=== PATIENT | male | born 1935 | race Caucasian/White ===

== ENCOUNTER → 2017-01-18 | Outpatient (REF) ==
[~2017-01-18] MED LIST: ASPIRIN 81M81 MG/TA2 PO; CELEXA10 MG PO; CENTRUM SILVER1 TAB PO; CIPRO 500MG TA500 MG PO; CLARITIN 1010 MG/TAB PO; COLACE 100100 MG/CAP PO; CORDARONE200 MG/TAB PO; COUMADIN 6MG6 MG/TAB PO; COUMADIN4 MG PO; DULCOLAX S10 MG/SUPP RC; ELIQUIS 5MG PO; FERRATE325 MG PO; FISH OIL1000 MG PO; FLOMAX 0.40.4 MG/CAP PO; HYDROCORTISONE TP; LANOXIN 0.120.125 MG PO; LIPITOR 10MG10 MG PO; LOPRESSOR 550 MG/TAB PO; MACRODANTIN100 PO; MEGACE ES625 MG/51 PO; MILK OF MA400 MG/52 PO; MIRALAX PA17 GM/Dose PO; NITROSTAT0.4 MG/TAB SL; NORCO 325 MG-51 TAB PO; PRILOSEC 20MG20 MG PO; REMERON 15M15 MG/TA1 PO; SENNA8.6 MG PO; SENOKOT S 50 MG1 TAB PO; SYNTHROID 0.10.15 MG PO; SYNTHROID0.175 MG PO; TYLENOL 325MG325 MG PO
[2017-01-18 17:03] LABS: THYROID STIMULATING HORMONE 0.785 uIU/mL (0.465-4.680)
== END ==
LOC: ZLAB.WCH 15:49
PROVIDERS: Internal Medicine
DX: Z01.89 Encounter for other specified special examinations (principal)

== ENCOUNTER → 2017-02-01 | Emergency (ER) | payer MEDICARE, OTHER ==
[~2017-02-01] VITALS: Ht 177.8 cm; Wt 92.7 kg
[2017-02-01 10:41] VITALS: TEMP 98.8
[2017-02-01 11:52] LABS: BASO # 0.1 (0.0-0.2); BASO % 0.7 % (0.0-2.0); EOS # 0.1 (0.0-0.7); EOS % 0.7 % (0-4.0); GRAN # 3.6 (1.4-6.5); GRAN % 53.7 % (42.2-75.2); HEMATOCRIT 49.8 % (42.0-52.0); HEMOGLOBIN 16.7 g/dl (13.5-18.0); LYMPH # 2.4 (1.2-3.4); LYMPH % 36.3 % (20.0-51.0); MEAN CELL VOLUME 95 fl (80.0-100.0); MEAN CORPUSCULAR HEMOGLOBIN 32 pg (27.0-31.0); MEAN CORPUSCULAR HGB CONC 34 g/dl (33.0-37.0); MEAN PLATELET VOLUME 11.2 fl (7.4-10.4); MONO # 0.6 (0.1-0.6); MONO % 8.5 % (1.7-9.3); PLATELET COUNT 164 K/mm3 (130-400); RED BLOOD COUNT 5.27 M/mm3 (4.20-5.60); REDCELL DISTRIBUTION WIDTH-CV 13.7 % (11.5-14.5); WHITE BLOOD COUNT 6.7 K/mm3 (4.8-10.8)
[2017-02-01 11:59] LABS: PARTIAL THROMBOPLASTIN TIME 46.7 SECONDS (26.0-37.0)
[2017-02-01 12:15] LABS: ADJUSTED CALCIUM 9.2 mg/dL (8.4-10.2); ALANINE AMINOTRANSFERASE 22 U/L (21-72); ALKALINE PHOSPHATASE 91 U/L (50-136); ANION GAP 14 mmol/L (7-16); BILIRUBIN,TOTAL 1.1 mg/dL (0.0-1.0); BLOOD UREA NITROGEN 10 mg/dL (9-20); C-REACTIVE PROTEIN 0.8 mg/dL (0.0-0.9); CALCIUM 9.2 mg/dL (8.4-10.2); CARBON DIOXIDE 25 mmol/L (22-30); CHLORIDE 101 mmol/L (98-107); CREATININE, serum 0.96 mg/dL (0.66-1.25); GLUCOSE 86 mg/dL (74-106); LIPASE 60 U/L (23-300); SODIUM 141 mmol/L (137-145); TOTAL PROTEIN 7.6 gm/dL (6.4-8.2)
[2017-02-01 12:24] LABS: TROPONIN-I < 0.012 ng/mL (0.000-0.034)
[2017-02-01 12:50] LABS: PH 6 (5-8); SQUAMOUS EPITHELIAL None Seen /hpf; URINE APPEARANCE Clear; URINE BACTERIA None Seen /hpf; URINE BILIRUBIN Negative (NEGATIVE); URINE BLOOD 1+ (NEGATIVE); URINE COLOR Yellow; URINE GLUCOSE Negative (NEGATIVE); URINE KETONE Negative (NEGATIVE); URINE RBC 0-2 /hpf; URINE UROBILINOGEN Negative (NEGATIVE); URINE WBC 0-2 /hpf
[2017-02-01 14:27] VITALS: BP 121/86; PULSE 78
== END | disposition home or self-care (01) ==
LOC: COL.ER 10:39
PROVIDERS: Emergency Medicine
DX: R33.9 Retention of urine, unspecified (principal); I48.91 Unspecified atrial fibrillation; Z79.01 Long term (current) use of anticoagulants; I69.354 Hemiplegia and hemiparesis following cerebral infarction affecting left non-dominant side
CPT/HCPCS: J7030

== ENCOUNTER → 2017-02-11 | Outpatient (CLI) | payer MEDICARE, OTHER | LOC: COL.RAD 09:27 | DX: N40.0 Benign prostatic hyperplasia without lower urinary tract symptoms (principal); N32.3 Diverticulum of bladder; R10.32 Left lower quadrant pain | CPT/HCPCS: Q9967 ==

== ENCOUNTER → 2017-03-08 | Outpatient (REF) ==
[2017-03-08 19:00] LABS: PSA-TOTAL 2.13 ng/mL (0-4)
[2017-03-08 19:22] LABS: THYROID STIMULATING HORMONE 0.685 uIU/mL (0.465-4.680)
== END ==
LOC: ZLAB.WCH 18:06
PROVIDERS: Internal Medicine
DX: Z01.89 Encounter for other specified special examinations (principal)
CPT/HCPCS: G0103

== ENCOUNTER 2017-05-31 10:45 | Outpatient (RCR) | payer MEDICARE, OTHER | END 2017-06-03 | disposition still patient (30) | LOC: MKS.ESL.PT | DX: I69.398 Other sequelae of cerebral infarction (principal); R26.89 Other abnormalities of gait and mobility; I69.354 Hemiplegia and hemiparesis following cerebral infarction affecting left non-dominant side; M21.372 Foot drop, left foot | CPT/HCPCS: G8978-GP; G8979-GP; G8990-GO; G8991-GO; G8992-GO ==

== ENCOUNTER 2017-06-14 11:15 | Outpatient (RCR) | payer MEDICARE, OTHER | END 2017-09-02 | LOC: MKS.ESL.PT | DX: I63.9 Cerebral infarction, unspecified (principal) | CPT/HCPCS: G8979-GP; G8980-GP ==

== ENCOUNTER 2018-04-24 11:00 | Outpatient (RCR) | payer MEDICARE, OTHER ==
[2018-04-26] MEDS ORDERED: SYNTHROID0.2 MG/TAB PO (14:11)
[2018-04-26] MEDS ORDERED: CELEXA 20MG20 MG/TAB PO (14:12)
[2018-04-26] MEDS ORDERED: POTASSIUM IODID PO (14:16)
[2018-04-26] MEDS ORDERED: COUMADIN 5MG5 MG/TAB PO (14:18)
[2018-04-26] MEDS ORDERED: BACTRIM DS 8001 TAB PO (14:20)
[2018-04-26] MEDS ORDERED: MIRALAX PA17 GM/Dose PO (14:20)
[2018-04-26] MEDS ORDERED: CARDIZEM120 MG PO (16:13)
[2018-04-29] MEDS ORDERED: MACRODANTIN100 PO (07:44)
== END 2018-06-08 | disposition home or self-care (01) ==
LOC: MKS.ESL.PT
DX: I69.954 Hemiplegia and hemiparesis following unspecified cerebrovascular disease affecting left non-dominant side (principal)
CPT/HCPCS: G8978-GP; G8979-GP

== ENCOUNTER → 2018-07-22 | Outpatient (REF) ==
[~2018-07-22] MED LIST changes: +BACTRIM DS 8001 TAB PO; +CARDIZEM120 MG PO; +CELEXA 20MG20 MG/TAB PO; +COUMADIN 5MG5 MG/TAB PO; +POTASSIUM IODID PO; +SYNTHROID0.2 MG/TAB PO
[2018-07-22 19:46] LABS: THYROID STIMULATING HORMONE 0.183 uIU/mL (0.465-4.680)
[2018-07-22 20:45] LABS: PSA-TOTAL 2.32 ng/mL (0-4)
== END ==
LOC: ZLAB.WCH 18:28
PROVIDERS: Internal Medicine
DX: Z01.89 Encounter for other specified special examinations (principal)
CPT/HCPCS: G0103

== ENCOUNTER 2018-09-17 09:15 | Outpatient (RCR) | payer MEDICARE, OTHER | END 2018-09-18 | disposition home or self-care (01) | LOC: MKS.ESL.PT | DX: I69.398 Other sequelae of cerebral infarction (principal); R25.2 Cramp and spasm | CPT/HCPCS: G8978-GP; G8979-GP; G8981-GO; G8982-GO; G8983-GO ==

== ENCOUNTER 2018-11-20 10:30 | Outpatient (RCR) | payer MEDICARE, OTHER | END 2018-12-18 | disposition home or self-care (01) | LOC: MKS.ESL.PT | DX: I69.398 Other sequelae of cerebral infarction (principal); R25.2 Cramp and spasm | CPT/HCPCS: G8978-GP; G8979-GP ==

== ENCOUNTER → 2019-04-30 | Outpatient (CLI) | payer MEDICARE, OTHER | LOC: COL.RAD 09:23 | DX: N28.1 Cyst of kidney, acquired (principal); N32.89 Other specified disorders of bladder ==

== ENCOUNTER → 2019-05-04 | Outpatient (CLI) | payer MEDICARE, OTHER | LOC: COL.RAD 14:41 | DX: Z01.812 Encounter for preprocedural laboratory examination (principal); N28.89 Other specified disorders of kidney and ureter; N28.1 Cyst of kidney, acquired; N32.89 Other specified disorders of bladder; N32.3 Diverticulum of bladder; N40.0 Benign prostatic hyperplasia without lower urinary tract symptoms; I48.2 Chronic atrial fibrillation; N31.8 Other neuromuscular dysfunction of bladder; N39.0 Urinary tract infection, site not specified; R31.9 Hematuria, unspecified; Z96.7 Presence of other bone and tendon implants | CPT/HCPCS: Q9967 ==

== ENCOUNTER 2019-06-25 10:30 | Outpatient (RCR) | payer MEDICARE, OTHER ==
[2019-07-10] MEDS ORDERED: XARELTO20 MG PO (15:01)
[2019-07-10] MEDS ORDERED: AUGMENTIN 250 M1 TAB PO (15:06)
== END 2019-08-04 | disposition still patient (30) ==
LOC: MKS.ESL.PT
DX: I69.351 Hemiplegia and hemiparesis following cerebral infarction affecting right dominant side (principal)

== ENCOUNTER 2019-07-10 13:12 | Emergency (ER) | payer MEDICARE, OTHER ==
[~2019-07-10] VITALS: Ht 177.8 cm; Wt 92.7 kg
[2019-07-10 14:13] LABS: BASO % 0.4 % (0.0-2.0); EOS # 0.1 (0.0-0.7); EOS % 0.7 % (0-4.0); HEMATOCRIT 45.3 % (42.0-52.0); HEMOGLOBIN 15.3 g/dl (13.5-18.0); LYMPH # 2.1 (1.2-3.4); MEAN CELL VOLUME 94 fl (80.0-100.0); MEAN CORPUSCULAR HEMOGLOBIN 32 pg (27.0-31.0); MEAN CORPUSCULAR HGB CONC 34 g/dl (33.0-37.0); MEAN PLATELET VOLUME 10.5 fl (7.4-10.4); MONO # 0.7 (0.1-0.6); MONO % 10.5 % (1.7-9.3); PLATELET COUNT 163 K/mm3 (130-400); RED BLOOD COUNT 4.83 M/mm3 (4.20-5.60); REDCELL DISTRIBUTION WIDTH-CV 13.6 % (11.5-14.5)
[2019-07-10 14:34] LABS: COLLECTION METHOD CATHETER
[2019-07-10 14:36] LABS: ALANINE AMINOTRANSFERASE < 6 U/L (21-72); ALKALINE PHOSPHATASE 85 U/L (50-136); ANION GAP 10 mmol/L (7-16); AST,SGOT 21 U/L (15-37); BILIRUBIN,TOTAL 0.6 mg/dL (0.0-1.0); BLOOD UREA NITROGEN 12 mg/dL (9-20); CALCIUM 8.4 mg/dL (8.4-10.2); CARBON DIOXIDE 22 mmol/L (22-30); CHLORIDE 104 mmol/L (98-107); CREATININE, serum 0.95 (0.66-1.25); GLUCOSE 114 mg/dL (74-106); POTASSIUM 4.1 mmol/L (3.4-5.0); SODIUM 137 mmol/L (137-145); TOTAL PROTEIN 7.1 gm/dL (6.4-8.2)
[2019-07-10 14:40] LABS: PH 6 (5-8); SQUAMOUS EPITHELIAL None Seen /hpf; URINE APPEARANCE Clear; URINE BACTERIA None Seen /hpf; URINE BILIRUBIN Negative (NEGATIVE); URINE BLOOD 1+ (NEGATIVE); URINE COLOR Yellow; URINE GLUCOSE Negative (NEGATIVE); URINE KETONE Negative (NEGATIVE); URINE LEUKOCYTE ESTERASE Negative (NEGATIVE); URINE NITRATE Negative (NEGATIVE); URINE PROTEIN(semi-quant) Negative (NEGATIVE); URINE RBC 0-2 /hpf; URINE UROBILINOGEN Negative (NEGATIVE)
[2019-07-10] MEDS ORDERED: XARELTO20 MG PO (15:01)
[2019-07-10] MEDS ORDERED: AUGMENTIN 250 M1 TAB PO (15:06)
[2019-07-10 15:57] VITALS: BP 127/65; PULSE 60; TEMP 98.2
== END 2019-07-10 15:55 | disposition home or self-care (01) ==
LOC: COL.ER 13:12
PROVIDERS: Emergency Medicine
DX: S20.212A Contusion of left front wall of thorax, initial encounter (principal); Z86.73 Personal history of transient ischemic attack (TIA), and cerebral infarction without residual deficits; W19.XXXA Unspecified fall, initial encounter; Y92.009 Unspecified place in unspecified non-institutional (private) residence as the place of occurrence of the external cause
CPT/HCPCS: A9284

== ENCOUNTER 2020-08-12 11:04 | Emergency (ER) | payer MEDICARE, OTHER ==
[~2020-08-12] VITALS: Ht 177.8 cm; Wt 90.0 kg
[~2020-08-12 11:04] MED LIST changes: +AUGMENTIN 250 M1 TAB PO; +XARELTO20 MG PO
[2020-08-12 11:17] VITALS: TEMP 98.5
[2020-08-12 12:34] LABS: BASO # 0.1 (0.0-0.2); BASO % 0.6 % (0.0-2.0); EOS # 0.1 (0.0-0.7); EOS % 0.6 % (0-4.0); GRAN # 6.5 (1.4-6.5); GRAN % 63.9 % (42.2-75.2); HEMATOCRIT 40.7 % (42.0-52.0); HEMOGLOBIN 13.2 g/dl (13.5-18.0); LYMPH # 2.6 (1.2-3.4); LYMPH % 25.3 % (20.0-51.0); MEAN CELL VOLUME 91 fl (80.0-100.0); MEAN CORPUSCULAR HEMOGLOBIN 29 pg (27.0-31.0); MEAN CORPUSCULAR HGB CONC 32 g/dl (33.0-37.0); MEAN PLATELET VOLUME 10.8 fl (7.4-10.4); MONO % 9.4 % (1.7-9.3); PLATELET COUNT 185 K/mm3 (130-400); RED BLOOD COUNT 4.49 M/mm3 (4.20-5.60); REDCELL DISTRIBUTION WIDTH-CV 14.6 % (11.5-14.5)
[2020-08-12 12:40] LABS: INR 2.1 (0.8-3.0)
[2020-08-12 12:43] LABS: PARTIAL THROMBOPLASTIN TIME 43.7 SECONDS (26.0-37.0)
[2020-08-12 12:56] LABS: ALANINE AMINOTRANSFERASE 10 U/L (4-49); ALKALINE PHOSPHATASE 80 U/L (50-136); ANION GAP 9 mmol/L (7-16); AST,SGOT 19 U/L (15-37); BILIRUBIN,TOTAL 0.9 mg/dL (0.0-1.0); BLOOD UREA NITROGEN 12 mg/dL (9-20); C-REACTIVE PROTEIN 3.9 mg/dL (0.0-0.9); CALCIUM 8.6 mg/dL (8.4-10.2); CARBON DIOXIDE 24 mmol/L (22-30); CHLORIDE 104 mmol/L (98-107); CREATININE, serum 1.07 (0.66-1.25); GLUCOSE 121 mg/dL (74-106); PHOSPHOROUS 3.1 mg/dL (2.5-4.5); POTASSIUM 3.9 mmol/L (3.4-5.0); SODIUM 137 mmol/L (137-145); TOTAL PROTEIN 7.2 gm/dL (6.4-8.2)
[2020-08-12 13:02] LABS: STREP SCREEN NEGATIVE
[2020-08-12 13:06] LABS: TROPONIN-I < 0.012 ng/mL (0.000-0.035)
[2020-08-12] MEDS ORDERED: CLEOCIN HCL300 MG PO (15:34)
[2020-08-12 15:55] VITALS: BP 128/64; PULSE 81
== END 2020-08-12 15:55 | disposition home or self-care (01) ==
LOC: COL.ER 11:04
PROVIDERS: Emergency Medicine
DX: J02.9 Acute pharyngitis, unspecified (principal); R05 Cough; I48.91 Unspecified atrial fibrillation; Z20.828 Contact with and (suspected) exposure to other viral communicable diseases; Z79.01 Long term (current) use of anticoagulants; Z86.73 Personal history of transient ischemic attack (TIA), and cerebral infarction without residual deficits

== ENCOUNTER → 2021-01-12 | Outpatient (CLI) | payer MEDICARE, OTHER ==
[~2021-01-12] MED LIST changes: +AMOXICILLIN 8751 TAB PO; +CLEOCIN HCL300 MG PO; +MUCINEX 60600 MG/TA1 PO
[2021-01-12 17:16] LABS: TROPONIN-I < 0.012 ng/mL (0.000-0.035)
== END ==
LOC: ZCOL.LAB 17:09
PROVIDERS: Internal Medicine Interventional Cardiology
DX: R07.89 Other chest pain (principal)

== ENCOUNTER → 2021-01-13 | Outpatient (CLI) | payer MEDICARE, OTHER | LOC: COL.RAD 09:27 | DX: R07.89 Other chest pain (principal); Z95.810 Presence of automatic (implantable) cardiac defibrillator ==

== ENCOUNTER 2021-01-23 17:14 | Emergency (ER) | payer MEDICARE, OTHER ==
[~2021-01-23] VITALS: Ht 177.8 cm; Wt 90.9 kg
[~2021-01-23 17:14] MED LIST changes: -AMOXICILLIN 8751 TAB PO; -MUCINEX 60600 MG/TA1 PO
[2021-01-23 17:32] VITALS: TEMP 97.7
[2021-01-23] MEDS ORDERED: MUCINEX 60600 MG/TA1 PO (18:12)
[2021-01-23 18:18] LABS: ALBUMIN 4.2 gm/dL (3.5-5.0); BILIRUBIN,TOTAL 0.3 mg/dL (0.0-1.0); CALCIUM 8.7 mg/dL (8.4-10.2); CREATININE, serum 1.11 (0.66-1.25); POTASSIUM 3.9 mmol/L (3.4-5.0)
[2021-01-23 18:30] LABS: BASO # 0.1 (0.0-0.2); BASO % 0.8 % (0.0-2.0); EOS # 0.1 (0.0-0.7); EOS % 1.3 % (0-4.0); GRAN # 3.8 (1.4-6.5); GRAN % 43.4 % (42.2-75.2); HEMATOCRIT 39.8 % (42.0-52.0); HEMOGLOBIN 12.1 g/dl (13.5-18.0); LYMPH % 45.9 % (20.0-51.0); MEAN CELL VOLUME 88 fl (80.0-100.0); MEAN CORPUSCULAR HEMOGLOBIN 27 pg (27.0-31.0); MEAN CORPUSCULAR HGB CONC 30 g/dl (33.0-37.0); MEAN PLATELET VOLUME 10.6 fl (7.4-10.4); MONO # 0.7 (0.1-0.6); MONO % 8.4 % (1.7-9.3); PLATELET COUNT 262 K/mm3 (130-400); RED BLOOD COUNT 4.55 M/mm3 (4.20-5.60); REDCELL DISTRIBUTION WIDTH-CV 16.3 % (11.5-14.5)
[2021-01-23] MEDS ORDERED: AMOXICILLIN 8751 TAB PO (18:41)
[2021-01-23 19:30] VITALS: BP 124/75; PULSE 66
== END 2021-01-23 19:30 | disposition home or self-care (01) ==
LOC: COL.ER 17:14
PROVIDERS: Nurse Practitioner Primary Care
DX: J18.9 Pneumonia, unspecified organism (principal); I48.0 Paroxysmal atrial fibrillation; E03.9 Hypothyroidism, unspecified; F32.9 Major depressive disorder, single episode, unspecified; E78.5 Hyperlipidemia, unspecified; J98.8 Other specified respiratory disorders; R79.1 Abnormal coagulation profile; Z86.73 Personal history of transient ischemic attack (TIA), and cerebral infarction without residual deficits; Z79.890 Hormone replacement therapy; Z79.01 Long term (current) use of anticoagulants
CPT/HCPCS: A9284; Q9967

== ENCOUNTER 2021-09-04 15:00 | Outpatient (RCR) | payer MEDICARE, OTHER ==
[2021-08-25 14:04] VITALS: BP 139/67; PULSE 67; TEMP 97.9
[2021-08-28 15:25] VITALS: BP 185/73; PULSE 56; TEMP 98.3
[2021-08-30 15:19] VITALS: BP 127/61; PULSE 60; TEMP 98
[2021-09-01 10:55] VITALS: BP 141/69; PULSE 73; TEMP 98.2
[~2021-09-04] VITALS: Ht 177.8 cm; Wt 89.8 kg
[~2021-09-04 15:00] MED LIST changes: +AMOXICILLIN 8751 TAB PO; +MUCINEX 60600 MG/TA1 PO
[2021-09-04 15:10] VITALS: BP 121/56; PULSE 60; TEMP 98.5
== END 2021-09-04 15:44 | disposition still patient (30) ==
LOC: EUO 15:00
DX: D50.9 Iron deficiency anemia, unspecified (principal)
CPT/HCPCS: J1756

== ENCOUNTER 2021-10-04 14:56 | Outpatient (CLI) | payer MEDICARE, OTHER ==
[~2021-10-04] VITALS: Ht 177.8 cm; Wt 85.9 kg
[2021-10-04 15:28] VITALS: BP 135/74; PULSE 61; TEMP 97.5
== END 2021-10-04 15:54 ==
LOC: EUO 14:56
DX: D50.9 Iron deficiency anemia, unspecified (principal)
CPT/HCPCS: J1756

== ENCOUNTER 2021-11-06 15:01 | Outpatient (CLI) | payer MEDICARE ==
[~2021-11-06] VITALS: Ht 177.8 cm; Wt 92.0 kg
[2021-11-06 15:47] VITALS: BP 161/75; PULSE 62; TEMP 98
== END 2021-11-06 16:21 | disposition home or self-care (01) ==
LOC: EUO 15:01
DX: D50.9 Iron deficiency anemia, unspecified (principal)
CPT/HCPCS: J1756

== ENCOUNTER 2021-12-05 09:12 | Outpatient (CLI) | payer MEDICARE ==
[~2021-12-05] VITALS: Ht 177.8 cm; Wt 85.0 kg
[2021-12-05 09:32] VITALS: BP 125/65; PULSE 62; TEMP 97.9
== END 2021-12-05 10:00 | disposition home or self-care (01) ==
LOC: EUO 09:12
DX: D50.9 Iron deficiency anemia, unspecified (principal)
CPT/HCPCS: J1756

== ENCOUNTER 2022-01-02 09:52 | Outpatient (CLI) | payer MEDICARE ==
[2022-01-02 10:27] VITALS: BP 133/52; PULSE 61; TEMP 98.4
== END 2022-01-02 10:41 ==
LOC: EUO 09:52
DX: D50.9 Iron deficiency anemia, unspecified (principal); Z79.899 Other long term (current) drug therapy
CPT/HCPCS: J1756

== ENCOUNTER 2022-01-31 14:40 | Emergency (ER) | payer MEDICARE ==
[~2022-01-31] VITALS: Ht 177.8 cm; Wt 92.7 kg
[2022-01-31 15:05] VITALS: TEMP 99.4
[2022-01-31 15:54] LABS: BASO # 0.1 K/mm3 (0.0-0.2); BASO % 0.7 % (0.0-2.0); EOS # 0.1 K/mm3 (0.0-0.7); EOS % 1.7 % (0.0-4.0); GRAN # 4.4 K/mm3 (1.4-6.5); GRAN % 62.3 % (42.2-75.2); HEMATOCRIT 42.6 % (42.0-52.0); HEMOGLOBIN 14.4 g/dl (13.5-18.0); LYMPH # 1.8 K/mm3 (1.2-3.4); LYMPH % 25.8 % (20.0-51.0); MEAN CELL VOLUME 93 fl (80.0-100.0); MEAN CORPUSCULAR HEMOGLOBIN 31 pg (27-31); MEAN CORPUSCULAR HGB CONC 34 g/dl (33.0-37.0); MEAN PLATELET VOLUME 10.8 fl (7.4-10.4); MONO # 0.6 K/mm3 (0.1-0.6); MONO % 9.2 % (1.7-9.3); PLATELET COUNT 158 K/mm3 (130-400); RED BLOOD COUNT 4.59 M/mm3 (4.20-5.60); REDCELL DISTRIBUTION WIDTH-CV 14.8 % (11.5-14.5)
[2022-01-31 16:19] LABS: ALANINE AMINOTRANSFERASE 12 U/L (0-55); ALBUMIN 3.3 gm/dL (3.4-4.8); ALKALINE PHOSPHATASE 63 U/L (40-150); ANION GAP 10 mmol/L (7-16); AST,SGOT 16 U/L (5-34); BLOOD UREA NITROGEN 12 mg/dL (8-26); CALCIUM 8.1 mg/dL (8.4-10.2); CARBON DIOXIDE 18 mmol/L (23-31); CHLORIDE 104 mmol/L (98-107); CREATININE, serum 1.01 mg/dL (0.72-1.25); GLUCOSE 101 mg/dL (70-99); POTASSIUM 4.1 mmol/L (3.5-4.5); SODIUM 132 mmol/L (136-145)
[2022-01-31 16:21] LABS: TROPONIN-I < 0.010 ng/mL (0.00-0.033)
[2022-01-31] MEDS ORDERED: PROAIR HFA0.09 MG/AC IH (18:09)
[2022-01-31 18:31] VITALS: BP 140/99; PULSE 87
== END 2022-01-31 18:32 | disposition home or self-care (01) ==
LOC: COL.ER 14:40
PROVIDERS: Emergency Medicine
DX: R05.3 Chronic cough (principal); R50.9 Fever, unspecified; E83.51 Hypocalcemia; E87.1 Hypo-osmolality and hyponatremia; Z86.73 Personal history of transient ischemic attack (TIA), and cerebral infarction without residual deficits; Z20.822 Contact with and (suspected) exposure to COVID-19

== ENCOUNTER 2022-02-08 14:41 | Outpatient (CLI) | payer MEDICARE ==
[~2022-02-08] VITALS: Ht 177.8 cm; Wt 93.1 kg
[~2022-02-08 14:41] MED LIST changes: +PROAIR HFA0.09 MG/AC IH
[2022-02-08 15:07] VITALS: BP 138/60; PULSE 68; TEMP 98.3
[2022-02-08] MEDS ORDERED: MUCINEX1200 MG PO (15:13)
== END 2022-02-08 16:00 | disposition home or self-care (01) ==
LOC: EUO 14:41
DX: D50.9 Iron deficiency anemia, unspecified (principal)
CPT/HCPCS: J1756

== ENCOUNTER 2022-03-12 14:48 | Outpatient (CLI) | payer MEDICARE ==
[~2022-03-12] VITALS: Ht 177.8 cm; Wt 95.0 kg
[~2022-03-12 14:48] MED LIST changes: +MUCINEX1200 MG PO
[2022-03-12 15:26] VITALS: BP 128/78; PULSE 66; TEMP 98.3
== END 2022-03-19 12:09 ==
LOC: EUO 14:48
DX: D50.9 Iron deficiency anemia, unspecified (principal)
CPT/HCPCS: J1756

== ENCOUNTER 2022-05-10 08:51 | Outpatient (RCR) | payer MEDICARE ==
[~2022-05-10] VITALS: Ht 177.8 cm; Wt 90.9 kg
[2022-05-10 09:35] VITALS: BP 122/57; PULSE 59; TEMP 98
== END 2022-05-10 12:00 | disposition home or self-care (01) ==
LOC: EUO 08:51
DX: D50.9 Iron deficiency anemia, unspecified (principal)
CPT/HCPCS: J1756